=== PATIENT | male | born 1990 | race African-American/Black ===

== ENCOUNTER 2017-09-19 22:09 | Emergency (ER) | payer OTHER ==
[~2017-09-19] VITALS: Ht 172.7 cm; Wt 78.0 kg
[2017-09-19 22:20] VITALS: BP 147/80
[2017-09-19] MEDS ORDERED: LET 3ml Soln TOPIC ONE (22:30)
[2017-09-19] MEDS ORDERED: Lidocaine 1% Plain 30 ml INJ ONE (22:30)
[2017-09-19] MEDS ORDERED: Tetanus/Diptheria/Pertussis Vaccine 0.5ml Syr IM ONE (22:45)
[2017-09-19] MEDS ORDERED: Bacitracin Oint UD TOPIC ONE (22:45)
--- NOTE | 2017-09-20 00:04 | Emergency Room Report ---
History of Present Illness General Chief Complaint: Laceration Source: Patient Present Illness HPI Patient cutting wood with sawzall and cut L index finger tip. Tip is still attached. Painful = 2/10 sharp, constant, not radiating.. No sig bleeding. Tetanus > 10 years. No major medical problems. R handed Allergies: Coded Allergies: No Known Allergies (Unverified , 09/19/17) Patient History Past Medical History: see triage record Social History: Denies: smoking Social History Narrative with sig other - applications sales consultant for [employer] Reviewed Nursing Documentation: PMH: Agreed; PSxH: Agreed Nursing Documentation-PMH Past Medical History: No Stated History Review of Systems Constitutional: Denies: fever Musculoskeletal: Reports: see HPI Skin: Reports: see HPI Neurological: Denies: numbness Hematologic/Lymphatic: Reports: see HPI Physical Exam Vital Signs Date Time Temp Pulse Resp B/P (MAP) Pulse Ox O2 Delivery O2 Flow Rate FiO2 09/19/17 22:15 97.3 66 18 147/80 98 Room Air 97.3 General Appearance: well appearing, no apparent distress Head: normocephalic, atraumatic Eyes: bilateral eye normal inspection, bilateral eye PERRL ENT: hearing grossly normal, normal voice Neck: full range of motion, supple Respiratory: no respiratory distress, speaking full sentences Musculoskeletal: normal range of motion Neurologic: alert, motor strength/tone normal, sensory intact, normal gait Psychiatric: mood/affect normal Skin: laceration - - more avulsion of L index finger tip Procedures Laceration/Wound Repair Laceration/Wound Repair : Consent: Verbal Wound Location: upper extremity - L index finger Wound's Depth, Shape: superficial, contused tissue Wound Explored: contaminated Irrigated w/ Saline (ccs): 20 Anesthesia: 1% Lidocaine - digital block Wound Debrided: moderate Suture Size/Type: other - none Sterile Dressing Applied?: Yes Patient Tolerated: Well Complications: None Progress Initially laceration looked deep, but then determined to be avulsion of skin exposing deep subcutaneous tissue. Dirty and cleaned extensively. Devitalized skin removed Medical Decision Making Diagnostic Impression: Primary Impression: Skin avulsion ER Course Patient with saw injury to L index finger. DDx laceration, avulsion. After digital block, more avulsion. Aggressively cleaned and dressing applied. Tolerated well (requested extra lido). Patient stable for outpatient observation and treatment. Last Vital Signs Date Time Temp Pulse Resp B/P (MAP) Pulse Ox O2 Delivery O2 Flow Rate FiO2 09/20/17 00:21 97.3 66 18 147/80 98 Room Air 97.3 Status: improved Disposition: HOME, SELF-CARE Condition: Improved Scripts Ibuprofen* (MOTRIN*) 600 Mg Tablet 600 MG ORAL Q6H PRN for For Pain, #10 TAB Prov: Wallace Guevara M.D. 09/20/17 Tramadol Hcl* (ULTRAM*) 50 Mg Tablet 50 MG ORAL Q6H PRN for For Pain, #6 TAB 1 Refill Prov: Wallace Guevara M.D. 09/20/17 Referrals: NOT CHOSEN ESTER/,REFERRING (PCP) Wallace Guevara M.D. Sep 20, 2017 00:04
[2017-09-20] MEDS ORDERED: TRAMADOL HCL50 MG ORAL (00:14)
[2017-09-20] MEDS ORDERED: IBUPROFEN600 MG ORAL (00:14)
[2017-09-20 00:21] VITALS: BP 147/80
== END 2017-09-20 00:21 | disposition home or self-care (01) ==
LOC: EMR 22:56
DX: S61.211A Laceration without foreign body of left index finger without damage to nail, initial encounter (principal); Z23 Encounter for immunization; W27.8XXA Contact with other nonpowered hand tool, initial encounter; Y92.9 Unspecified place or not applicable
CPT/HCPCS: 90471; 90715; 99282; J2001